=== PATIENT | male | born 1990 ===

== ENCOUNTER → 2019-12-20 | Outpatient (REF) | payer BC ==
[2019-12-20 09:08] LABS: SEMEN APPEARANCE OPAQUE (OPAQUE); SEMEN VISCOSITY VISCOUS (LIQUID); SEMEN VOLUME 2.9 ml (2.0-5.0)
[2019-12-20 09:11] LABS: WBC CONCENTRATION >1 M/ml (<=1 M/ml)
[2019-12-20 09:12] LABS: SPERM CONCENTRATION 11.2 M/ml (>=15.0)
== END ==
LOC: M LAB REF 07:30
PROVIDERS: ATTEND Obstetrics & Gynecology
DX: N46.9 Male infertility, unspecified (principal)

== ENCOUNTER → 2020-01-04 | Outpatient (REF) | payer BC ==
[2020-01-04 10:20] LABS: SEMEN APPEARANCE OPAQUE (OPAQUE); SEMEN VISCOSITY LIQUID (LIQUID); SEMEN pH 8.5 (7.0-8.0); WBC CONCENTRATION >1 M/ml (<=1 M/ml)
== END ==
LOC: M SFHCWAGY 10:00
PROVIDERS: ATTEND Obstetrics & Gynecology
DX: N46.9 Male infertility, unspecified (principal)